=== PATIENT | female | born 1975 | race Caucasian/White ===

== ENCOUNTER 2019-01-26 07:17 | Emergency (ER) | payer BC, OTHER ==
[~2019-01-26] VITALS: Ht 152.4 cm; Wt 56.1 kg
[2019-01-26] MEDS ORDERED: TETanus/Pertussis (Acell)/Diphther VAC/PF (Tdap-Adult) 0.5ml syringe IMVAC ONE (08:20)
[2019-01-26] MEDS ORDERED: IBUP-1984 PO (08:38)
[2019-01-26] MEDS ORDERED: CEPH250T PO (08:38)
[2019-01-26 09:46] VITALS: BP 142/95
== END 2019-01-26 09:48 | disposition home or self-care (01) ==
LOC: ER 07:17
DX: S61.210A Laceration without foreign body of right index finger without damage to nail, initial encounter (principal); E10.9 Type 1 diabetes mellitus without complications; Z90.49 Acquired absence of other specified parts of digestive tract; Z90.710 Acquired absence of both cervix and uterus; W45.8XXA Other foreign body or object entering through skin, initial encounter; Y93.89 Activity, other specified; Y92.89 Other specified places as the place of occurrence of the external cause; Y99.9 Unspecified external cause status
CPT/HCPCS: 90471; 90715; 99283

== ENCOUNTER 2019-10-02 18:15 | Emergency (ER) | payer OTHER ==
[~2019-10-02] VITALS: Ht 152.4 cm; Wt 54.5 kg
[2019-10-02] MEDS ORDERED: ondansetron/PF 4mg/2ml inj IV ONE (18:20)
[2019-10-02] MEDS ORDERED: normal saline 1000ML IV soln IVB ONE (18:20)
[2019-10-02 18:40] LABS: BASOPHILS # (AUTO) 0.1 X10'3 (0-0.2); BASOPHILS % (AUTO) 1.3 % (0-1); EOSINOPHILS # (AUTO) 0.1 X10'3 (0-0.9); EOSINOPHILS % (AUTO) 1.3 % (0-6); HEMATOCRIT 43.3 % (35.0-45.0); HEMOGLOBIN 14.9 g/dl (12.0-16.0); LYMPHOCYTES # (AUTO) 2.6 X10'3 (1.1-4.8); MEAN CORPUSCULAR HEMOGLOBIN 33.7 PG (27.0-31.0); MEAN CORPUSCULAR HGB CONC 34.5 g/dL (33.0-36.5); MEAN CORPUSCULAR VOLUME 97.6 FL (78-98); MEAN PLATELET VOLUME 8.9 FL (7.4-10.4); MONOCYTES # (AUTO) 0.8 X10'3 (0-0.9); MONOCYTES % (AUTO) 9.7 % (2-12); NEUTROPHILS # (AUTO) 4.8 X10'3 (1.8-7.7); NEUTROPHILS % (AUTO) 56.7 % (42-75); PLATELET COUNT 225 X10'3 (140-440); RED BLOOD COUNT 4.43 X10'6 (4.20-5.60); RED CELL DISTRIBUTION WIDTH 12.6 % (11.5-14.5); WHITE BLOOD COUNT 8.4 X10'3 (4.5-11.0)
[2019-10-02 18:52] LABS: CLARITY,URINE CLEAR (Clear); COLOR,URINE YELLOW (Yellow); GLUCOSE, URINE 250 mg/dl (Neg); KETONES,URINE NEGATIVE (Neg); LEUKOCYTE ESTERASE ,URINE NEGATIVE (Neg); NITRITES, URINE NEGATIVE (Neg); OCCULT BLOOD,URINE NEGATIVE (Neg); PH,URINE 6.5 (4.8-8.0); PROTEIN,URINE NEGATIVE (Neg); UROBILINOGEN,URINE 0.2 E.U/dL (0.2-1.0)
[2019-10-02 18:54] LABS: UA COLLECTION TYPE CLN CATCH MIDSTREAM; URINE HCG NEGATIVE (NEG)
[2019-10-02 18:56] LABS: ANION GAP 9 (8-16); BLOOD UREA NITROGEN 8 MG/DL (7-18); BUN/CREATININE RATIO 11.4 (6.6-38.0); CHLORIDE 106 MMOL/L (99-107); GLUCOSE 108 MG/DL (70-104); POTASSIUM 3.2 MMOL/L (3.5-5.1); SODIUM 140 MMOL/L (135-145); TOTAL CARBON DIOXIDE 25.3 MMOL/L (24-32); eGFR > 90 ML/MIN
[2019-10-02 18:57] LABS: ALANINE AMINOTRANSFERASE 15 U/L (12-78); ALBUMIN 3.4 G/DL (3.4-5.0); ALBUMIN/GLOBULIN RATIO 1.1 (1.1-1.5); ALKALINE PHOSPHATASE 61 IU/L (46-116); ASPARTATE AMINO TRANSFERASE 22 U/L (10-37); BILIRUBIN,TOTAL 0.6 MG/DL (0.1-1.0); CALCIUM 8.6 MG/DL (8.5-10.1); LIPASE 60 U/L (73-393); TOTAL PROTEIN 6.4 G/DL (6.4-8.2)
[2019-10-02] MEDS ORDERED: ONDA4TAB6 PO (19:13)
[2019-10-02] MEDS ORDERED: LORazepam 2 mg/ml vial IV ONE (19:15)
[2019-10-02] MEDS ORDERED: ketorolac trometh. 30mg/ml inj. IV ONE (19:15)
[2019-10-02] MEDS ORDERED: famotidine/PF 10 mg/ml inj IV ONE (19:15)
[2019-10-02] MEDS: morphine 4 MG/ML inj SYRINge IV PRN ×2 (19:15→19:50)
[2019-10-02] MEDS ORDERED: LIDOcaine Viscous 15ml cup MM ONE (19:55)
[2019-10-02] MEDS ORDERED: mag hydrox/Alum hydrox/simeth 30ml oral suspension PO ONE (19:55)
[2019-10-02] MEDS ORDERED: sucralfate 1 gm tablet PO ONE (19:55)
[2019-10-02] MEDS ORDERED: morphine 4 MG/ML inj SYRINge IV ONE (20:25)
[2019-10-02 20:43] VITALS: BP 153/95
== END 2019-10-02 21:02 | disposition home or self-care (01) ==
LOC: ER 18:15
DX: R10.10 Upper abdominal pain, unspecified (principal); B34.9 Viral infection, unspecified; E11.9 Type 2 diabetes mellitus without complications; Z90.49 Acquired absence of other specified parts of digestive tract; Z90.710 Acquired absence of both cervix and uterus; Z72.89 Other problems related to lifestyle; Z79.899 Other long term (current) drug therapy
CPT/HCPCS: 36415; 80053; 81003; 81025; 83690; 85025; 93005; 96361; 96374; 96375; 96376; 99284; J1885; J2060; J2270; J3490; J7030

== ENCOUNTER 2022-02-19 10:41 | Inpatient (IN) | payer BC, OTHER ==
[~2022-02-19] VITALS: Ht 165.1 cm; Wt 50.0 kg
[~2022-02-19 10:41] MED LIST: ONDA4TAB6 PO
[2022-02-19 11:12] LABS: BASOPHILS # (AUTO) 0.1 X10'3 (0-0.2); BASOPHILS % (AUTO) 0.8 % (0-1); EOSINOPHILS # (AUTO) 0.1 X10'3 (0-0.9); EOSINOPHILS % (AUTO) 0.9 % (0-6); HEMATOCRIT 46.2 % (35.0-45.0); HEMOGLOBIN 15.9 g/dl (12.0-16.0); LYMPHOCYTES # (AUTO) 1.8 X10'3 (1.1-4.8); LYMPHOCYTES % (AUTO) 24.2 % (21-51); MEAN CORPUSCULAR HEMOGLOBIN 33.1 PG (27.0-31.0); MEAN CORPUSCULAR HGB CONC 34.3 g/dL (33.0-36.5); MEAN CORPUSCULAR VOLUME 96.5 FL (78-98); MEAN PLATELET VOLUME 9.4 FL (7.4-10.4); MONOCYTES # (AUTO) 0.8 X10'3 (0-0.9); MONOCYTES % (AUTO) 11.3 % (2-12); NEUTROPHILS # (AUTO) 4.6 X10'3 (1.8-7.7); NEUTROPHILS % (AUTO) 62.8 % (42-75); PLATELET COUNT 211 X10'3 (140-440); RED BLOOD COUNT 4.79 X10'6 (4.20-5.60); RED CELL DISTRIBUTION WIDTH 12.7 % (11.5-14.5); WHITE BLOOD COUNT 7.3 X10'3 (4.5-11.0)
[2022-02-19 11:40] LABS: ALANINE AMINOTRANSFERASE 19 U/L (12-78); ALBUMIN 3.7 G/DL (3.4-5.0); ALBUMIN/GLOBULIN RATIO 1.2 (1.1-1.5); ALKALINE PHOSPHATASE 80 IU/L (46-116); ANION GAP 9 (8-16); ASPARTATE AMINO TRANSFERASE 30 U/L (10-37); BILIRUBIN,TOTAL 0.8 MG/DL (0.1-1.0); BLOOD UREA NITROGEN 16 MG/DL (7-18); BUN/CREATININE RATIO 21.9 (6.6-38.0); CALCIUM 8.3 MG/DL (8.5-10.1); CHLORIDE 100 MMOL/L (99-107); CREATININE 0.73 MG/DL (0.40-0.90); GLUCOSE 169 MG/DL (70-104); POTASSIUM 3.3 MMOL/L (3.5-5.1); SODIUM 138 MMOL/L (135-145); TOTAL CARBON DIOXIDE 29.2 MMOL/L (24-32); TOTAL PROTEIN 6.7 G/DL (6.4-8.2); eGFR 86 ML/MIN
[2022-02-19] MEDS ORDERED: sucralfate 1 gm tablet PO ONE (12:15)
[2022-02-19] MEDS ORDERED: LIDOcaine Viscous 15ml cup MM ONE (12:15)
[2022-02-19] MEDS ORDERED: magnesium hydroxide 30ml (MOM) UD suspension PO ONE (12:15)
[2022-02-19] MEDS ORDERED: nitroGLYCERIN 0.4mg/hour patch TD ONE (13:30)
[2022-02-19] MEDS ORDERED: aspirin 81mg tab.chew PO ONE (13:30)
[2022-02-19] MEDS ORDERED: metoprolol tartrate 50mg tablet PO ONE (13:30)
[2022-02-19] MEDS ORDERED: LORazepam 2 mg/ml vial IV ONE (13:50)
[2022-02-19 14:45] LABS: D-DIMER 0.47 MG/L FEU (0-0.50)
[2022-02-19] MEDS ORDERED: ALPR1TAB7 PO (15:15)
[2022-02-19] MEDS ORDERED: PROP10TA10 PO (15:15)
[2022-02-19] MEDS ORDERED: INSU100V11 SQ (15:15)
[2022-02-19] MEDS ORDERED: VALS40TA11 PO (15:23)
[2022-02-19] MEDS ORDERED: HYDROcodone/acetaminophen 10/325mg tab PO ONE (17:05)
[2022-02-19] MEDS ORDERED: potassium Cl 20 mEq SR tablet PO PRN (18:35)
[2022-02-19] MEDS ORDERED: potassium Cl 40MEQ/1/2NS 520ml 520 ML IV PRN (18:35)
[2022-02-19] MEDS ORDERED: acetaminophen 325mg tablet PO PRN (18:35)
[2022-02-19] MEDS ORDERED: magnesium 4gm in 100ml NS 100 ML IV PRN (18:35)
[2022-02-19] MEDS ORDERED: ondansetron/PF 4mg/2ml inj IV PRN (18:35)
[2022-02-19] MEDS ORDERED: magnesium Cl slow-release 64mg tablet PO PRN (18:35)
[2022-02-19] MEDS ORDERED: regadenoson 0.4mg/5ml syringe IV PRN (18:40)
[2022-02-19] MEDS ORDERED: metoprolol tartrate 1mg/ml inj IV PRN (18:40)
[2022-02-19] MEDS ORDERED: nitroGLYCERIN 0.4mg SUBLingual tab SL PRN (18:40)
[2022-02-19] MEDS ORDERED: aminophylline 250mg/10ml inj. IV PRN (18:40)
[2022-02-19] MEDS: normal saline 1000ml 1,000 ML IV SCH (19:33)
[2022-02-19] MEDS: K and/or MAG REPLACEMENT MC SCH (20:10)
[2022-02-19] MEDS: potassium Cl 20 mEq SR tablet PO PRN (20:15)
[2022-02-19] MEDS ORDERED: propranolol 10mg tablet PO PRN (21:30)
[2022-02-19] MEDS ORDERED: ALPRAZolam 0.5mg tablet PO PRN (21:30)
[2022-02-20] VITALS (10 sets, daily range): BP systolic 109–165; BP diastolic 69–93
[2022-02-20] MEDS ORDERED: diatr meglu/diatrizoate 30ml oral sol.-(3 dose) bottle PO SCH
--- NOTE | 2022-02-20 00:55 | NUR ---
PATIENT ADMITTED TO ROOM 340B FROM ER FOR CHEST PAIN, DM AND GASTROPARESIS. PLACED COMFORTABLE IN BED. VITAL SIGNS TAKEN AND RECORDED.
[2022-02-20] MEDS: normal saline 1000ml 1,000 ML IV SCH (01:12)
[2022-02-20] MEDS: potassium Cl 20 mEq SR tablet PO PRN (01:19)
[2022-02-20 06:23] LABS: ANION GAP 4 (8-16); BLOOD UREA NITROGEN 11 MG/DL (7-18); BUN/CREATININE RATIO 14.5 (6.6-38.0); CALCIUM 7.5 MG/DL (8.5-10.1); CHLORIDE 106 MMOL/L (99-107); CREATININE 0.76 MG/DL (0.40-0.90); GLUCOSE 190 MG/DL (70-104); POTASSIUM 4.4 MMOL/L (3.5-5.1); SODIUM 140 MMOL/L (135-145); TOTAL CARBON DIOXIDE 30.1 MMOL/L (24-32); eGFR 82 ML/MIN
[2022-02-20 06:26] LABS: BASOPHILS % (AUTO) 0.8 % (0-1); EOSINOPHILS # (AUTO) 0.2 X10'3 (0-0.9); EOSINOPHILS % (AUTO) 3.8 % (0-6); HEMATOCRIT 43.1 % (35.0-45.0); HEMOGLOBIN 14.5 g/dl (12.0-16.0); LYMPHOCYTES % (AUTO) 35.6 % (21-51); MEAN CORPUSCULAR HEMOGLOBIN 32.9 PG (27.0-31.0); MEAN CORPUSCULAR HGB CONC 33.6 g/dL (33.0-36.5); MEAN PLATELET VOLUME 9.6 FL (7.4-10.4); MONOCYTES # (AUTO) 0.6 X10'3 (0-0.9); MONOCYTES % (AUTO) 10.3 % (2-12); NEUTROPHILS # (AUTO) 2.8 X10'3 (1.8-7.7); NEUTROPHILS % (AUTO) 49.5 % (42-75); PLATELET COUNT 171 X10'3 (140-440); WHITE BLOOD COUNT 5.7 X10'3 (4.5-11.0)
--- NOTE | 2022-02-20 06:30 | NUR ---
Problems reprioritized. Patient report given, questions answered & plan of care reviewed with CHELY HIGH.
--- NOTE | 2022-02-20 06:35 | NUR ---
Patient in room [facility]. I have received report from LENNOX [place] and had the opportunity to ask questions and assume patient care.
[2022-02-20] MEDS: diatr meglu/diatrizoate 30ml oral sol.-(3 dose) bottle PO SCH ×2 (07:11→09:02)
[2022-02-20] MEDS: K and/or MAG REPLACEMENT MC SCH (07:20)
[2022-02-20] MEDS ORDERED: losartan 25mg tablet PO SCH (08:00)
[2022-02-20] MEDS ORDERED: iohexol 300mg/ml 100ml inj. ONE (09:12)
--- NOTE | 2022-02-20 09:40 | NUR ---
DM Consult: Pt hx T1DM A1C 6.7% appropriate. Noted pt BMI 18.3 pending scaled wt this admit per EMR. Noted current height error all prior visits height 60in making current BMI 21.5 appropriate. Addendum: 02/20/22 at [address] Amended: Links added.
--- NOTE | 2022-02-20 12:45 | NUR ---
IV TO RT AC IS LEAKING WHEN FLUSHED, DC'D CANNULA INTACT, STARTED 20 TO LEFT AC ON 1ST ATTEMPT
[2022-02-20] MEDS ORDERED: NITR0.4T51 SL (15:03)
[2022-02-20] MEDS ORDERED: PANT40SU2 PO (15:04)
--- NOTE | 2022-02-20 15:29 | NUR ---
PAGER ID: [phone] MESSAGE: [phone] [phone] RE: Loerta Whittaker - Cardiac scan resulted shows "No reversible perfusion abnormalities noted to represent stress-induced ischemia." OK to discharge?
--- NOTE | 2022-02-20 17:30 | NUR ---
Patient was discharged at 1715 with instructions verbalizing understanding of instructions in wheelchair accompanied by nursing staff and family going home via private vehicle. All lines and tubes including PIV with cannula intact and tele monitor were removed. education has been provided at bedside and all questions have been answered. Patient will follow up with her primary care provider. Patient is stable and appropriate for discharge.
== END 2022-02-20 17:10 | disposition home or self-care (01) | DRG 313 ==
LOC: ER 10:41 → ED HOLD 18:37 → SUR 3N 02-20 00:50
PROVIDERS: ADMIT Internal Medicine; ATTEND Internal Medicine
PROC: 4A02XM4 Measurement of Cardiac Total Activity, External Approach (ICD-10-PCS; principal; 2022-02-20)
PROC: 3E033HZ Introduction of Radioactive Substance into Peripheral Vein, Percutaneous Approach (ICD-10-PCS; 2022-02-20)
PROC: BW211ZZ Computerized Tomography (CT Scan) of Abdomen and Pelvis using Low Osmolar Contrast (ICD-10-PCS; 2022-02-20)
DX: R07.2 Precordial pain (principal); N95.1 Menopausal and female climacteric states; K31.84 Gastroparesis; E10.43 Type 1 diabetes mellitus with diabetic autonomic (poly)neuropathy; E87.6 Hypokalemia; I10 Essential (primary) hypertension; F41.9 Anxiety disorder, unspecified; Z90.49 Acquired absence of other specified parts of digestive tract; Z90.710 Acquired absence of both cervix and uterus; Z79.4 Long term (current) use of insulin; Z79.899 Other long term (current) drug therapy
CPT/HCPCS: 36415; 71045; 74177; 76700; 78452; 80048; 80053; 82948; 83036; 83735; 83880; 84484; 85025; 85379; 87081; 93005; 93017; 96374; 99285; A6258; A9500; G0378; J2060; J2405; J2785; J3490; J7030; Q9963; Q9967

== ENCOUNTER 2022-03-16 18:44 | Emergency (ER) | payer BC ==
[~2022-03-16] VITALS: Ht 165.1 cm; Wt 52.3 kg
[~2022-03-16 18:44] MED LIST changes: +ALPR1TAB7 PO; +INSU100V11 SQ; +NITR0.4T51 SL; -ONDA4TAB6 PO; +PANT40SU2 PO; +PROP10TA10 PO; +VALS40TA11 PO
[2022-03-16] MEDS ORDERED: famotidine 20mg tablet PO ONE (19:15)
[2022-03-16] MEDS ORDERED: ondansetron 4mg rapidly disintigrating tab PO ONE (19:15)
[2022-03-16] MEDS ORDERED: LIDOcaine Viscous 15ml cup MM ONE (19:15)
[2022-03-16] MEDS ORDERED: mag hydrox/Alum hydrox/simeth 30ml oral suspension PO ONE (19:15)
[2022-03-16 19:29] LABS: BASOPHILS # (AUTO) 0.1 X10'3 (0-0.2); BASOPHILS % (AUTO) 0.9 % (0-1); EOSINOPHILS # (AUTO) 0.3 X10'3 (0-0.9); HEMATOCRIT 44.5 % (35.0-45.0); HEMOGLOBIN 15.1 g/dl (12.0-16.0); LYMPHOCYTES # (AUTO) 2.3 X10'3 (1.1-4.8); LYMPHOCYTES % (AUTO) 33.7 % (21-51); MEAN CORPUSCULAR HEMOGLOBIN 32.7 PG (27.0-31.0); MEAN CORPUSCULAR HGB CONC 33.9 g/dL (33.0-36.5); MEAN CORPUSCULAR VOLUME 96.4 FL (78-98); MEAN PLATELET VOLUME 9.2 FL (7.4-10.4); MONOCYTES # (AUTO) 0.5 X10'3 (0-0.9); NEUTROPHILS # (AUTO) 3.5 X10'3 (1.8-7.7); NEUTROPHILS % (AUTO) 52.4 % (42-75); PLATELET COUNT 200 X10'3 (140-440); RED BLOOD COUNT 4.61 X10'6 (4.20-5.60); RED CELL DISTRIBUTION WIDTH 12.8 % (11.5-14.5); WHITE BLOOD COUNT 6.7 X10'3 (4.5-11.0)
[2022-03-16 19:40] LABS: ALANINE AMINOTRANSFERASE 18 U/L (12-78); ALBUMIN 3.5 G/DL (3.4-5.0); ALBUMIN/GLOBULIN RATIO 1.2 (1.1-1.5); ALKALINE PHOSPHATASE 83 IU/L (46-116); ANION GAP 4 (8-16); ASPARTATE AMINO TRANSFERASE 19 U/L (10-37); BILIRUBIN,TOTAL 0.4 MG/DL (0.1-1.0); BLOOD UREA NITROGEN 10 MG/DL (7-18); BUN/CREATININE RATIO 16.7 (6.6-38.0); CHLORIDE 101 MMOL/L (99-107); GLUCOSE 185 MG/DL (70-104); POTASSIUM 4.2 MMOL/L (3.5-5.1); SODIUM 136 MMOL/L (135-145); TOTAL PROTEIN 6.5 G/DL (6.4-8.2); eGFR > 90 ML/MIN
[2022-03-16] MEDS ORDERED: fentaNYL/PF 50MCG/1 ML 2ML syringe IV ONE (20:40)
[2022-03-16] MEDS ORDERED: pantoprazole 40mg IV 80 MG in normal saline 100ml IV soln 100 ML IV ONE (20:40)
[2022-03-16] MEDS ORDERED: ketorolac trometh. 30mg/ml inj. IV ONE (20:40)
--- NOTE | 2022-03-16 20:49 | NUR ---
PT CO INCREASED CP. INFORMED. ORDERS RECIEVED
[2022-03-16] MEDS: pantoprazole 40MG/NS 100ML BAG 100 ML IV SCH ×2 (21:04→21:44)
[2022-03-16 21:05] VITALS: BP 169/110
[2022-03-16] MEDS ORDERED: PANT-47 PO (22:12)
[2022-03-16] MEDS ORDERED: HYDROcodone/acetaminophen 5mg/325mg tablet PO ONE (22:15)
--- NOTE | 2022-03-16 22:41 | NUR ---
IV DC'D PT BEING DISCHARGED. DRSSING APPPLIED
== END 2022-03-16 22:43 | disposition home or self-care (01) ==
LOC: ER 18:45
DX: R07.89 Other chest pain (principal); R03.0 Elevated blood-pressure reading, without diagnosis of hypertension; R93.1 Abnormal findings on diagnostic imaging of heart and coronary circulation; I10 Essential (primary) hypertension; E11.9 Type 2 diabetes mellitus without complications; F17.200 Nicotine dependence, unspecified, uncomplicated; Z87.19 Personal history of other diseases of the digestive system; Z90.49 Acquired absence of other specified parts of digestive tract; Z90.710 Acquired absence of both cervix and uterus; Z72.89 Other problems related to lifestyle; Z79.4 Long term (current) use of insulin; Z79.899 Other long term (current) drug therapy
CPT/HCPCS: 36415; 71045; 80053; 83880; 84484; 85025; 93005; 96374; 96375; 99285; C9113; J1885; J3010; 96365; 96366

== ENCOUNTER 2023-06-29 05:55 | Day surgery (SDC) | payer BC ==
[2023-06-25 15:27] LABS: BASOPHILS # (AUTO) 0.1 X10'3 (0-0.2); BASOPHILS % (AUTO) 1.3 % (0-1); EOSINOPHILS # (AUTO) 0.1 X10'3 (0-0.9); EOSINOPHILS % (AUTO) 1.2 % (0-6); LYMPHOCYTES # (AUTO) 1.5 X10'3 (1.1-4.8); LYMPHOCYTES % (AUTO) 22.7 % (21-51); MEAN CORPUSCULAR HEMOGLOBIN 30.5 PG (27.0-31.0); MEAN CORPUSCULAR HGB CONC 33.2 g/dL (33.0-36.5); MEAN CORPUSCULAR VOLUME 92.1 FL (78-98); MEAN PLATELET VOLUME 9.8 FL (7.4-10.4); MONOCYTES # (AUTO) 0.6 X10'3 (0-0.9); MONOCYTES % (AUTO) 9.3 % (2-12); NEUTROPHILS # (AUTO) 4.3 X10'3 (1.8-7.7); NEUTROPHILS % (AUTO) 65.5 % (42-75); PRE OP HEMATOCRIT 43.4 % (35.0-45.0); PRE OP HEMOGLOBIN 14.4 g/dL (12.0-16.0); PRE OP PLATELET COUNT 211 X10'3 (140-440); PRE OP WHITE BLOOD COUNT 6.5 10'3 (4.8-10.8); RED BLOOD COUNT 4.72 X10'6 (4.20-5.60); RED CELL DISTRIBUTION WIDTH 13.6 % (11.5-14.5)
[2023-06-25 15:45] LABS: ALBUMIN 3.6 G/DL (3.4-5.0); ALBUMIN/GLOBULIN RATIO 1.2 (1.1-1.5); ALKALINE PHOSPHATASE 65 IU/L (46-116); BLOOD UREA NITROGEN 20 MG/DL (7-18); BUN/CREATININE RATIO 30.3 (10.0-20.0); CALCIUM 8.8 MG/DL (8.5-10.1); CHLORIDE 106 MMOL/L (99-107); CREATININE 0.66 MG/DL (0.40-0.90); PRE OP ALT 15 U/L (30-65); PRE OP ANION GAP 3 (8-16); PRE OP AST 13 U/L (10-37); PRE OP BILIRUB, TOTAL 0.3 MG/DL (0.0-1.0); PRE OP POTASSIUM 3.7 MMOL/L (3.4-5.1); PRE OP SODIUM 139 MMOL/L (135-145); TOTAL CARBON DIOXIDE 30.1 MMOL/L (24-32); TOTAL PROTEIN 6.5 G/DL (6.4-8.2); eGFR > 90 ML/MIN
[2023-06-25 16:03] LABS: PRE OP GLUCOSE 254 MG/DL (70-104)
[2023-06-29] VITALS (9 sets, daily range): BP systolic 118–150; BP diastolic 82–91; PULSE 50–64; RESP 14–16; TEMP 97.8; O2SAT 98–99
[~2023-06-29] VITALS: Ht 152.4 cm; Wt 56.1 kg
[2023-06-29] MEDS: cefazolin 2gm/D5W 100mL 100 ML IV ONE (05:30)
[~2023-06-29 05:55] MED LIST changes: +ATOR20TA66 PO; +CELE-148 PO; +DESV50TA20 PO; +GABA300T28 PO; -NITR0.4T51 SL; -PANT40SU2 PO; -PROP10TA10 PO
[2023-06-29] MEDS: ringers solution, lacted 1,000 ML IV SCH (06:33)
[2023-06-29] MEDS: famotidine 20mg tablet PO ONE (06:33)
[2023-06-29] MEDS ORDERED: ringers solution, lacted 1,000 ML IV SCH (07:50)
[2023-06-29] MEDS ORDERED: ondansetron/PF 4mg/2ml inj IV PRN (07:50)
[2023-06-29] MEDS ORDERED: morphine 4 MG/ML inj SYRINge IV PRN (07:50)
[2023-06-29] MEDS ORDERED: labetalol 20mg/4ml (5mg/ml) syringe IV PRN (07:50)
[2023-06-29] MEDS ORDERED: fentaNYL/PF 50MCG/1 ML 2ML syringe ONE (07:53)
[2023-06-29] MEDS ORDERED: LIDOcaine 2% (20mg/ml) 5ml vial ONE ×2 (07:54→08:05)
[2023-06-29] MEDS ORDERED: propofol inj 20 ML IV ONE (07:54)
[2023-06-29] MEDS ORDERED: MIDAZolam 1 MG/ML 5ML VIAL ONE (07:54)
[2023-06-29] MEDS: LIDOcaine 2% (20mg/ml) 5ml vial ONE (08:35)
[2023-06-29] MEDS: BUPIVAcaine/PF 5 mg/ml 10ml ONE (08:36)
[2023-06-29] MEDS: morphine 2 MG/ML inj. syringe IV PRN (09:37)
== END 2023-06-29 10:12 | disposition home or self-care (01) ==
LOC: PAS 05:55
PROVIDERS: ATTEND Orthopaedic Surgery Hand Surgery
DX: G56.01 Carpal tunnel syndrome, right upper limb (principal); M65.311 Trigger thumb, right thumb; M65.321 Trigger finger, right index finger; M65.331 Trigger finger, right middle finger; I10 Essential (primary) hypertension; E11.9 Type 2 diabetes mellitus without complications; E78.00 Pure hypercholesterolemia, unspecified; F41.9 Anxiety disorder, unspecified; F32.A Depression, unspecified; Z86.73 Personal history of transient ischemic attack (TIA), and cerebral infarction without residual deficits; Z79.891 Long term (current) use of opiate analgesic; Z79.899 Other long term (current) drug therapy; Z90.49 Acquired absence of other specified parts of digestive tract; Z90.710 Acquired absence of both cervix and uterus; Z98.890 Other specified postprocedural states; Z88.8 Allergy status to other drugs, medicaments and biological substances
CPT/HCPCS: 26055; 29848; 36415; 80053; 82948; 85025; J0665; J0690; J2250; J2270; J2704; J3010; J3490; J7030; J7120; Z7506; Z7512; A4215; A6449; A7000

== ENCOUNTER 2023-07-27 06:11 | Day surgery (SDC) | payer BC ==
[2023-07-23 11:59] LABS: BASOPHILS # (AUTO) 0.1 X10'3 (0-0.2); EOSINOPHILS # (AUTO) 0.1 X10'3 (0-0.9); EOSINOPHILS % (AUTO) 0.9 % (0-6); LYMPHOCYTES # (AUTO) 1.7 X10'3 (1.1-4.8); MEAN CORPUSCULAR HEMOGLOBIN 30.6 PG (27.0-31.0); MEAN PLATELET VOLUME 10.4 FL (7.4-10.4); MONOCYTES # (AUTO) 0.5 X10'3 (0-0.9); NEUTROPHILS # (AUTO) 3.5 X10'3 (1.8-7.7); PRE OP HEMOGLOBIN 14.5 g/dL (12.0-16.0); RED BLOOD COUNT 4.73 X10'6 (4.20-5.60)
[2023-07-23 12:01] LABS: LYMPHOCYTES % (AUTO) 29.5 % (21-51); MEAN CORPUSCULAR HGB CONC 33.5 g/dL (33.0-36.5); MEAN CORPUSCULAR VOLUME 91.5 FL (78-98); MONOCYTES % (AUTO) 8.7 % (2-12); NEUTROPHILS % (AUTO) 59.9 % (42-75); PRE OP HEMATOCRIT 43.3 % (35.0-45.0); PRE OP PLATELET COUNT 184 X10'3 (140-440); PRE OP WHITE BLOOD COUNT 5.9 10'3 (4.8-10.8); RED CELL DISTRIBUTION WIDTH 13.4 % (11.5-14.5)
[2023-07-23 12:14] LABS: BLOOD UREA NITROGEN 13 MG/DL (7-18); CHLORIDE 104 MMOL/L (99-107); CREATININE 0.65 MG/DL (0.40-0.90); PRE OP ANION GAP 8 (8-16); PRE OP GLUCOSE 194 MG/DL (70-104); PRE OP POTASSIUM 3.6 MMOL/L (3.4-5.1); PRE OP SODIUM 141 MMOL/L (135-145); TOTAL CARBON DIOXIDE 29.2 MMOL/L (24-32)
[2023-07-23 12:15] LABS: ALBUMIN 3.6 G/DL (3.4-5.0); ALBUMIN/GLOBULIN RATIO 1.1 (1.1-1.5); ALKALINE PHOSPHATASE 73 IU/L (46-116); CALCIUM 8.6 MG/DL (8.5-10.1); PRE OP ALT 18 U/L (30-65); PRE OP AST 12 U/L (10-37); PRE OP BILIRUB, TOTAL 0.5 MG/DL (0.0-1.0); TOTAL PROTEIN 6.8 G/DL (6.4-8.2); eGFR > 90 ML/MIN
[2023-07-27] VITALS (9 sets, daily range): BP systolic 108–178; BP diastolic 82–91; PULSE 55–76; RESP 13–16; TEMP 98.4; O2SAT 92–99
[~2023-07-27] VITALS: Ht 152.4 cm; Wt 52.6 kg
[2023-07-27] MEDS: cefazolin 2gm/D5W 100mL 100 ML IV ONE (05:30)
[2023-07-27] MEDS: famotidine 20mg tablet PO ONE (05:30)
[2023-07-27] MEDS: ringers solution, lacted 1,000 ML IV SCH (05:30)
[~2023-07-27 06:11] MED LIST changes: +VALS160T30 PO; -VALS40TA11 PO
[2023-07-27] MEDS ORDERED: BUPIVAcaine/PF 2.5mg/ml (0.25%) 10ml vial ONE (07:02)
[2023-07-27] MEDS ORDERED: LIDOcaine 1% (10mg/ml)w/preservative inj. 20ml MDV ONE (07:02)
[2023-07-27] MEDS ORDERED: ondansetron/PF 4mg/2ml inj IV PRN (07:30)
[2023-07-27] MEDS ORDERED: labetalol 20mg/4ml (5mg/ml) syringe IV PRN (07:30)
[2023-07-27] MEDS ORDERED: morphine 2 MG/ML inj. syringe IV PRN (07:30)
[2023-07-27] MEDS ORDERED: ringers solution, lacted 1,000 ML IV SCH (07:30)
[2023-07-27] MEDS ORDERED: midazolam 1 mg/ML 2ml injection ONE (08:07)
[2023-07-27] MEDS ORDERED: fentaNYL/PF 50MCG/1 ML 2ML syringe ONE (08:07)
[2023-07-27] MEDS ORDERED: LIDOcaine 2% (20mg/ml) 5ml vial ONE (08:10)
[2023-07-27] MEDS ORDERED: propofol inj 20 ML IV ONE (08:10)
[2023-07-27] MEDS: LIDOcaine 1% 30ml preserv. free vial IJ ONE (08:19)
[2023-07-27] MEDS: morphine 4 MG/ML inj SYRINge IV PRN (08:37)
== END 2023-07-27 09:27 | disposition home or self-care (01) ==
LOC: PAS 06:11
PROVIDERS: ATTEND Orthopaedic Surgery Hand Surgery
DX: G56.02 Carpal tunnel syndrome, left upper limb (principal); I11.9 Hypertensive heart disease without heart failure; E10.40 Type 1 diabetes mellitus with diabetic neuropathy, unspecified; E78.00 Pure hypercholesterolemia, unspecified; F41.9 Anxiety disorder, unspecified; F32.A Depression, unspecified; Z79.899 Other long term (current) drug therapy; Z90.49 Acquired absence of other specified parts of digestive tract; Z90.710 Acquired absence of both cervix and uterus; Z98.890 Other specified postprocedural states
CPT/HCPCS: 29848; 36415; 80053; 82948; 85025; 93005; J0690; J2250; J2270; J2704; J3010; J3490; J7030; J7120; Z7506; Z7512; A4215; A6449; A7000; J0665